=== PATIENT | male | born 2000 | race Caucasian/White ===

== ENCOUNTER 2022-05-16 19:21 | Emergency (ER) | payer BC, SELFPAY ==
[2022-05-16 19:27] VITALS: BP 132/88; PULSE 77; RESP 16; TEMP 36.6; O2SAT 99; BMI 31.9
--- NOTE | 2022-05-16 19:42 | ED.GENADULT ---
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 Full range of motion of the hand, good hemostasis, and no range of motion deficit. He thinks he is up-to-date on tetanus. No other chronic health problems. No prior injury to the hand Related Data Home Medications Medication Instructions Recorded Confirmed No Known Home Medications 05/16/22 05/16/22 Allergies Allergy/AdvReac Type Severity Reaction Status Date / Time No Known Drug Allergies Allergy Verified 05/16/22 19:29 Review of Systems Narrative: No fevers, chills, wound infection problems, diabetes, history of hand injury PFSH PFS Social History Smoking Status: Never smoker Do you use any of these nicotine containing products: None How often do you have a drink containing alcohol: never AUDIT-C Alcohol total score: 0 Non-prescribed substance use: denies use Exam Narrative: Exam Narrative: Objective vital signs unremarkable General patient is no apparent distress Left hand shows no tenderness of the bones patient felt this was more of a pinch that was a a crush. He has a 2 cm laceration over the dorsum of the left hand over the 4th metacarpal mid, a gape slightly flexion extension of all fingers is normal consistent with good consistent with no significant tendon injury. Procedure: After sterile scrub with Awa-Jermaine the and irrigation the wound was closed after 1% xylocaine without epinephrine injected for anesthesia with 3-0 simple out interrupted Ethilon sutures x3. Good skin edge approximation good hemostasis. After repair the patient had normal extension flexion of his long and ring finger and little finger, without range of motion deficit. On visual inspection of the wound there was no evidence of tendon rupture or injury. Have asked the patient to recheck with suture removal in a week to have re-examination of function of the hand, there is any concern then referral to Hand surgery be indicated for an extensor tendon issue but at this point examination is normal and do not see any tendon tissue within the wound itself. Const: Vital Signs, click to edit/add: Vital Signs - 24 hr 05/16/22 19:27 Temperature 97.9 F Pulse Rate [Left P ulse Oximeter] 77 Respiratory Rate 16 Blood Pressure [Le ft Upper Arm] 132/88 Pulse Oximetry 99 Oxygen Delivery Me thod Room Air Course Vital Signs Vital signs: Initial Vital Signs Temperature 97.9 F 05/16/22 19:27 Temperature Source Temporal Artery Scan 05/16/22 19:27 Pulse Rate 77 05/16/22 19:27 Pulse Rhythm 05/16/22 19:27 Respiratory Rate 16 05/16/22 19:27 Blood Pressure 132/88 05/16/22 19:27 Blood Pressure Mean 102 05/16/22 19:27 Blood Pressure Position Sitting 05/16/22 19:27 Pulse Oximetry 99 05/16/22 19:27 Oxygen Delivery Method 05/16/22 19:27 Vital Signs Temperature 97.9 F 05/16/22 19:27 Pulse Rate 77 05/16/22 19:27 Respiratory Rate 16 05/16/22 19:27 Blood Pressure 132/88 05/16/22 19:27 Pulse Oximetry 99 05/16/22 19:27 Oxygen Delivery Method 05/16/22 19:27 Temperature 97.9 F 05/16/22 19:27 Pulse Rate 77 05/16/22 19:27 Respiratory Rate 16 05/16/22 19:27 Blood Pressure 132/88 05/16/22 19:27 Pulse Oximetry 99 05/16/22 19:27 Oxygen Delivery Method 05/16/22 19:27 Discharge Plan Discharge Clinical Impression: Laceration Patient Disposition: Home, Self-Care Condition: Improved Additional Instructions: suture removal in 7 days, watch for redness infection, keep covered for 24 hours then may bathe or shower as normal. Last tetanus shot was 2014 so should be up-to-date. May return to the clinic to get stitches out as mention, light use of left hand until stitches out Activity Level: Light activity Discharge Diet: Regular Prescriptions: No Action No Known Home Medications Stand Alone Forms: MyHealth Info Instructions
== END 2022-05-16 20:14 | disposition home or self-care (01) ==
PROVIDERS: Emergency Provider Family Medicine
DX: S61.412A Laceration without foreign body of left hand, initial encounter (principal); W23.0XXA Caught, crushed, jammed, or pinched between moving objects, initial encounter
CPT/HCPCS: 12001; 99283